=== PATIENT | male | born 1965 | race African-American/Black ===

== ENCOUNTER 2021-04-22 09:05 | Emergency (ER) | payer OTHER, SELFPAY ==
[2021-04-22 09:22] VITALS: BP 151/91; PULSE 90; RESP 18; TEMP 36.6; O2SAT 99; BMI 33.2
[2021-04-22 10:01] LABS: Appearance Urine CLEAR; Color Urine YELLOW; Glucose Urine UA >=1000 MG/DL (NEG); Leukocyte Esterase Urine NEG (NEG); Nitrite Urine NEG (NEG); PH 5.5 (5.0-8.0); Urine Blood NEG (NEG); Urine Ketones NEG (NEG); Urine Protein NEG (NEG-TRACE)
[2021-04-22 10:11] LABS: Mucus Urine TRACE /LPF; RBC Urine 0 /HPF (0); WBC Urine 0 /HPF (0-4)
--- NOTE | 2021-04-22 10:38 | ED_ITS ---
HPI - Male Genitourinary General Chief complaint: Urogenital-Male Stated complaint: genital burning Time Seen by Provider: 04/22/21 09:48 Source: patient Mode of arrival: ambulatory History of Present Illness HPI Narrative: 55-year-old male with past medical history of diabetes, hypertension, presenting to the ED complaining of dysuria since yesterday. Is sexually active with 1 female partner. Denies abdominal pain, testicular pain, penile pain/lesions, discharge, nausea/vomiting, flank pain, hematuria MD Complaint: dysuria Related Data Previous Rx's Medication Instructions Recorded doxycycline hyclate 100 mg tablet 100 mg PO BID 7 Days #14 tab 04/22/21 Allergies Allergy/AdvReac Type Severity Reaction Status Date / Time No Known Allergies Allergy Unverified 05/02/20 19:10 Review of Systems Review of Systems: Constitutional: No Fever, No Chills ENT/Mouth: No Ear Pain, No Nasal Congestion Cardiovascular: No Chest Pain, No SOB Respiratory: No Cough, No Sputum, No Wheezing Gastrointestinal: No Nausea, No Vomiting, No Diarrhea, No Constipation, No Abdominal pain Genitourinary:+ Dysuria, No Urinary Frequency, No Hematuria, No Urinary Incontinence, No Urgency, No Flank Pain, no penile pain, no discharge, no test icular pain Musculoskeletal: No joint pain, No Myalgias Skin: No Skin Lesions, No rash Neuro: No Weakness Yes all other systems are reviewed and are negative [facility] Past Medical History Attestation statement: The following information was validated with the patient. Medical History (Updated 04/22/21 @ 11:12 by MARCELO Henning) Diabetes HTN (hypertension) Social History Social History Advance Directives: No Advance Directives Information Provided: No Physical Exam Vital Signs: Vital Signs: Last Vital Signs Temp 98 F 04/22/21 09:22 Pulse 90 04/22/21 09:22 Resp 18 04/22/21 09:22 BP 151/91 H 04/22/21 09:22 Pulse Ox 99 04/22/21 09:22 Body Mass Index 33.2 Const: General: cooperative, healthy appearing and no acute distress Orientation/consciousness: patient oriented x3 Limitations: no limitations HENMT: Head: Yes normal to inspection Ears: hearing grossly normal bilaterally General nose exam: Normal external nose present Face and sinus: Yes normal facial exam Eyes: General: appearance normal, both eyes and all related structures EOM: EOMs intact bilaterally Neck: Neck: Yes normal visual inspection Resp: Effort & Inspection: normal respiratory effort and no respiratory distress Cardio: Rate: regular rate GI: Inspection: Yes normal to inspection Palpation (GI): Soft to palpation, nontender, no guarding and not rigid : General: Yes no CVA tenderness Male General Exam: Yes normal external exam Penis: normal penis and uncircumcised Meatus: meatus normal and no meatla discharge Testes: Testes normal and no epidiymal tenderness Back/Spine/Pelvis: Back: no CVA tenderness Skin: Rashes: no rashes Wounds: no wounds Neuro: General: patient oriented x3 Gait exam (Neuro): Normal gait present Extrem: General: Yes normal to inspection Course Course Course Narrative: -UA not infected. Patient given doxycycline and ceftriaxone in the ED for STI treatment. Discussed further STI testing at have history and repeat UA with PCP if symptoms continue, patient verbalized understanding feel safe for discharge home with MDM - Male Genitourinary MDM Narrative Medical decision making narrative: 55-year-old male with past medical history of diabetes, hypertension, presenting to the ED complaining of dysuria since yesterday. On exam VSS, NAD, abdomen soft/nontender, no CVAT, exam WNL, no penile lesions, no testicular tenderness, no discharge Rule out UTI versus STI. Patient is agreeable for impaired STI testing today. Low concern for testicular torsion, renal stone or pyelo Plan: STI testing, UA, will give IM Ceftriaxone and p.o. Doxy Medical Records Attestation: I reviewed the patient's medical records. Lab Data Attestation: I reviewed the patient's lab results. Labs: Lab Results 04/22/21 Range/Units 09:51 Urine Color YELLOW Urine Appearance CLEAR Urine pH 5.5 (5.0-8.0) Ur Specific [place] 1.020 (1.005-1.025) Urine Protein NEG (NEG-TRACE) MG/DL Urine Glucose (UA) >=1000 H (NEG) MG/DL Urine Ketones NEG (NEG) MG/DL Urine Blood NEG (NEG) Urine Nitrite NEG (NEG) Ur Leukocyte Esterase NEG (NEG) Urine RBC 0 (0) /HPF Urine WBC 0 (0-4) /HPF Ur Squamous Epith Cells NONE /LPF Urine Bacteria NONE /LPF Urine Mucus TRACE /LPF Discharge Plan Discharge Clinical Impression: Dysuria, STI (sexually transmitted infection) Patient Disposition: Home, Self-Care Instructions: Dysuria (ED) Additional Instructions: Your urine was not infected today You were tested for gonorrhea and chlamydia, the results should be back in a couple days, we will call you only for positive results You were treated empirically Doxycycline is an antibiotic, continue to take as prescribed Stay out of the sun while taking doxycycline, it makes you prone to sunburn Please refrain from any sexual contact until you know the results of your studies Inform her partners of her results if your positive so they can be tested and treated as well If her symptoms persist or worsen, you develop abdominal pain, back pain, fever, chills, penile lesions or testicular pain please return to the ED, follow-up with her doctor Follow-up with [facility] for further STI testing Prescriptions: New doxycycline hyclate 100 mg tablet 100 mg PO BID 7 Days Qty: 14 RF: 0 Referrals: Domingo Curran MD [Primary Care Provider] - 5 days
[2021-04-22] MEDS: cefTRIAXone sodium 500 MG, Lidocaine HCl 1 % MPF 1 ML IM (11:02)
[2021-04-22 12:45] LABS: CT PCR NOT DETECTED (Not Detect.); NG PCR NOT DETECTED (Not Detect.)
== END 2021-04-22 11:24 | disposition home or self-care (01) ==
PROVIDERS: Emergency Provider Emergency Medicine; PCP Internal Medicine Endocrinology, Diabetes & Metabolism
DX: R30.0 Dysuria (principal); Z11.3 Encounter for screening for infections with a predominantly sexual mode of transmission; E11.9 Type 2 diabetes mellitus without complications; I10 Essential (primary) hypertension
CPT/HCPCS: 81001; 87491; 87591; 96372; 99284; J0696

== ENCOUNTER 2024-03-14 07:46 | Emergency (ER) | payer OTHER, SELFPAY ==
[2024-03-14] VITALS (12 sets, daily range): BP systolic 128–162; BP diastolic 92–115; PULSE 87–111; RESP 14–26; TEMP 36.5–36.7; O2SAT 96–100; BMI 32.1; BMI 33.5
--- NOTE | ~2024-03-14 | XR_ITS ---
EXAMINATION: XR CHEST 2 VIEW CLINICAL INFORMATION: Chest pain COMPARISON: None TECHNIQUE: PA and lateral views of the chest obtained. FINDINGS: There are bilateral patchy perihilar opacities with prominence of the central vasculature and upper lung zone vessels. No pleural effusions are detected. The cardiomediastinal silhouette is nonenlarged.. There are no pleural effusions. The cardiomediastinal silhouette is normal. XR/XR chest 2V IMPRESSION: Bilateral patchy perihilar opacities and prominence of the central vasculature and upper lung zone vessels. Findings are nonspecific and could be related to congestive failure, although bilateral pneumonia cannot be excluded. Follow-up is recommended to confirm clearing
--- NOTE | 2024-03-14 07:49 | ECG_ITS ---
Test Reason : cp Blood Pressure : / mmHG Vent. Rate : 104 BPM Atrial Rate : 104 BPM P-R Int : 188 ms QRS Dur : 070 ms QT Int : 328 ms P-R-T Axes : 057 -37 -16 degrees QTc Int : 431 ms Sinus tachycardia Left axis deviation Hyperacute T waves anterior and lateral leads with inferior ST depressions-T wave inversion. -suspect ischemia Abnormal ECG No previous ECGs available Referred By: Generic ED Physician Electronically Signed By:Buster Alejandra
--- NOTE | 2024-03-14 08:01 | PC.NURSE ---
Pt. in ED 18. POC = 174
--- NOTE | 2024-03-14 08:02 | PC.NURSE ---
Pt. on cardiac monitoring at this time.
[2024-03-14 08:04] LABS: Glucose, Whole Blood 174 mg/dL (60-115)
--- NOTE | 2024-03-14 08:09 | PC.NURSE ---
20G inserted to RAC.
--- NOTE | 2024-03-14 08:13 | PC.NURSE ---
Labs sent as ordered.
[2024-03-14 08:18] LABS: MANUAL DIFF FLAG NO
[2024-03-14 08:20] LABS: Basophils Absolute Auto 0.1 X10*3/uL (0.0-0.2); Basophils Percent Auto 0.7 % (0-2); Eosinophils Absolute Auto 0.3 X10*3/uL (0.0-0.4); Hematocrit 40.9 % (42.0-52.0); Hemoglobin 13.9 g/dl (14.0-18.0); Imm Gran Abs Auto 0.03 X10*3/uL (0.00-0.03); Imm Gran Pct Auto 0.4 % (0.0-0.4); Lymphocytes Absolute Auto 3.9 X10*3/uL (1.2-4.9); Lymphocytes Percent Auto 56.6 % (20-40); Mean Corpuscular Hemoglobin 27.7 pg (27.0-33.0); Mean Corpuscular Volume 81.5 fL (80.0-98.0); Mean Platelet Volume 9.2 fL (9.4-12.4); Monocytes Absolute Auto 0.5 X10*3/uL (0.1-1.2); Monocytes Percent Auto 7.6 % (2-11); Neutrophils Absolute Auto 2.1 x10*3/uL (2.0-8.3); Neutrophils Percent Auto 30.7 % (45-73); Platelet Count 307 X10*3/uL (160-400); Red Blood Count 5.02 X10*6/uL (4.60-5.80); White Blood Count 6.8 X10*3/uL (4.8-10.8)
[2024-03-14 08:31] LABS: Anion Gap 13 (12-20); Blood Urea Nitrogen 7 mg/dL (9-16); Calcium 9.5 mg/dL (8.4-10.2); Carbon Dioxide 26 mmol/L (22-29); Chloride 103 mmol/L (96-108); Creatinine Clr Calc Pharmacy 104.1; Estimated Glomerular Filt Rate > 60; Glucose Random 188 mg/dL (60-115); Potassium 4.2 mmol/L (3.3-5.1); Sodium 138 mmol/L (135-145)
[2024-03-14] MEDS: Nitroglycerin 0.4 MG TAB.SUBL SUBLINGUAL ×3 (08:40→09:32)
[2024-03-14] MEDS: Magnesium Hydrox/Alum Hydrox 30 ML ORAL.SUSP PO (08:41)
--- NOTE | 2024-03-14 08:44 | PC.NURSE ---
Nitroglycerin and Maalox administered per OCT, D-Dimer drawn as ordered.
[2024-03-14 08:47] LABS: Troponin-I High Sensitivity 240.8 ng/L (<3.5-35.0)
--- NOTE | 2024-03-14 09:04 | PC.NURSE ---
Pt. medicated per MAR with second dose of 0.4mg Nitro. Is still c/o 05/25 chest pain at this time.
[2024-03-14 09:23] LABS: D Dimer High Sensitivity < 150 NG/ML
--- NOTE | 2024-03-14 09:34 | PC.NURSE ---
Pt. medicated per MAR with 3/3 dose of Nitroglycerin 0.4mg. Still with 10/10 CP. Provider aware.
--- NOTE | 2024-03-14 10:06 | PC.NURSE ---
Repeat Troponin drawn as ordered.
[2024-03-14] MEDS: Morphine Sulfate 2 MG/ML CARTRIDGE IVPUSH ×2 (10:22→10:59)
[2024-03-14 10:45] LABS: Troponin-I High Sensitivity 405.8 ng/L (<3.5-35.0)
--- NOTE | 2024-03-14 10:48 | ED_ITS ---
HPI - Chest Pain General Chief Complaint: Chest Pain Stated Complaint: Chest pain Time Seen by Provider: 03/14/24 08:17 Source: patient Limitations: no limitations History of Present Illness ED Provider: Xiomara Lewis PA-C HPI narrative: 58-year-old male with history of hypertension, hyperlipidemia diabetes presents with chest pain x3 days. Pain is over central chest, described as pleuritic, is nonradiating, and has increased in severity since the onset. Patient states he has had a mild dry, cough over the past few days, denies fever or history of asthma/COPD.Denies shortness of breath, diaphoresis, nausea or vomiting. Denies unilateral calf pain or swelling, hemoptysis, recent travel or surgery. Related Data Previous Rx's ?Medication ?Instructions ?Recorded doxycycline hyclate 100 mg tablet 100 mg PO BID 7 days #14 tabs 04/22/21 Allergies Allergy/AdvReac Type Severity Reaction Status Date / Time No Known Allergies Allergy Verified 03/14/24 07:58 Review of Systems 2 Review of Systems: Yes all other systems are reviewed and are negative Constitutional: Constitutional: Denies fatigue and Denies fever(s) Cardiovascular: Cardiovascular: Reports chest pain at rest and Denies dyspnea Respiratory: Respiratory: Reports pain on inspiration and Denies dyspnea Gastrointestinal: Gastrointestinal: Denies nausea Endocrine: Endocrine: Denies fatigue PMFSH Past Medical History Attestation statement: The following information was validated with the patient. Medical History (Updated 03/14/24 @ 11:39 by MARCELO Calhoun) HTN (hypertension) Diabetes Social History Social History Smoked in Last 30 Days: No Use of substances other than those prescribed or required for medical reasons: No Advance Directives: No Physical Exam 2 Vital Signs: Vital Signs: Last Vital Signs Temp 98.0 F 03/14/24 08:03 Pulse 87 03/14/24 11:11 Resp 14 03/14/24 11:11 BP 138/98 H 03/14/24 11:11 Pulse Ox 96 03/14/24 11:11 O2 Del Method Room Air 03/14/24 11:11 BMI result Body Mass Index 33.5 Const: Other: Alert, appears restless Orientation/consciousness: patient oriented x3 Resp: Other: Nonlabored respiration, faint expiratory wheeze wheezes/rhonchi noted posterior gunter Cardio: Other: Normal peripheral perfusion, no peripheral edema Skin: Other: Warm dry no rash Neuro: General: patient oriented x3, no focal motor deficits and CN's II-XI intact bilaterally Psych: Other: Cooperative Course Course Course Narrative: 58-year-old male with history of hypertension, hyperlipidemia diabetes presents with chest pain x3 days. Pain is over central chest, described as pleuritic, is nonradiating, and has increased in severity since the onset. Patient states he has had a mild dry, cough over the past few days, denies fever or history of asthma/COPD.Denies shortness of breath, diaphoresis, nausea or vomiting. Denies unilateral calf pain or swelling, hemoptysis, recent travel or surgery. Problem: Age, diabetes, hypertension, hyperlipidemia History: Per patient I have considered the following differential diagnoses: Pneumonia, viral syndrome, PE, ACS, GERD Plan: Concerned for ACS, the patient has numerous risk factors for coronary artery disease, Screening labs including cardiac enzymes, EKG and chest x-ray in process. We will be giving nitroglycerin. Given central discomfort, I am considering GERD, we will try Maalox. There is a pleuritic nature to the patient's pain, he is mildly tachycardic, although no obvious signs symptoms for DVT, and no risk factors for PE, I will obtain a D-dimer. He has had cough cold symptoms, perhaps this is viral syndrome versus pneumonia given adventitious lung sounds on exam, we will wait for chest x-ray. To note he has been afebrile. I have independently reviewed the following tests: EKG 1. Sinus tachycardia, rate of 104, ST depression lead 2 with T-wave inversions in 3 and AVF no additional ischemic changes, we do not have another EKG to Compare to EKG 2. Normal sinus rhythm, rate 89, ST-elevation anterolateral leads Labs: No leukocytosis, not anemic, no electrolyte abnormality, 1st troponin 240, 2nd 405 Chest x-ray: MR#: [id number] : 1965 Acct:[id number] Age/Sex: 58 / M ADM Date: 03/14/24 Loc: .ED Attending Dr: Ordering Physician: Xiomara Lewis Date of Service: 03/14/24 Procedure(s): XR chest 2V Accession Number(s): [id number] cc: Xiomara Lewis; Physician,Unknown ~ EXAMINATION: XR CHEST 2 VIEW CLINICAL INFORMATION: Chest pain COMPARISON: None TECHNIQUE: PA and lateral views of the chest obtained. FINDINGS: There are bilateral patchy perihilar opacities with prominence of the central vasculature and upper lung zone vessels. No pleural effusions are detected. The cardiomediastinal silhouette is nonenlarged.. There are no pleural effusions. The cardiomediastinal silhouette is normal. XR/XR chest 2V IMPRESSION: Bilateral patchy perihilar opacities and prominence of the central vasculature and upper lung zone vessels. Findings are nonspecific and could be related to congestive failure, although bilateral pneumonia cannot be excluded. Follow-up is recommended to confirm clearing Patient does not have a leukocytosis, he does not have a productive cough, I am inclined to think this maybe pulmonary edema, we will add a BNP Patient having a STEMI, ordering heparin and aspirin, will be reaching out to Cardiology Consultations Consultation #1: Patient cardiology now that I have the 2nd troponin, Dr. Alejandra sent the EKGs.... He recommends transfer to [facility] to activate the label paster, to give 180mg of Brilinta and a bolus of heparin 4000 units Time: 10:51 Consultation #2: Speaking with interventional cardiology at [facility], Dr. Mathur, something EKG, they are preparing the label paster they are waiting for the patient's arrival Time: 11:37 Medications Administered Generic Name Dose Route Start Last Admin Trade Name Freq PRN Reason Stop Dose Admin Morphine Sulfate 2 mg 03/14/24 10:06 03/14/24 10:59 Morphine Sulfate 2 Mg/Ml Cartridge IVPUSH 2 mg Q5M PRN Administration Chest Pain Protocol Nitroglycerin 0.4 mg 03/14/24 08:24 03/14/24 09:32 Nitroglycerin 0.4 Mg Tab.Subl SUBLINGUAL 0.4 mg [id number] PRN Administration Chest Pain Discontinued Medications Generic Name Dose Route Start Last Admin Trade Name Freq PRN Reason Stop Dose Admin Al Hydroxide/Mg Hydroxide 30 ml 03/14/24 08:24 03/14/24 08:41 Magnesium Hydrox/Alum Hydrox 30 Ml Oral.Susp PO 03/14/24 08:25 30 ml ONCE ONE Administration Aspirin 324 mg 03/14/24 10:53 03/14/24 10:58 Aspirin 81 Mg Tab.Chew PO 03/14/24 10:54 324 mg ONCE ONE Administration Ticagrelor 180 mg 03/14/24 11:10 03/14/24 11:23 Ticagrelor 90 Mg Tablet PO 03/14/24 11:11 180 mg ONCE ONE Administration Medical Decision Making Lab Data 03/14/24 08:13 03/14/24 08:13 Labs: Lab Results 03/14/24 03/14/24 03/14/24 Range/Units 08:01 08:13 08:41 WBC 6.8 (4.8-10.8) X10*3/uL RBC 5.02 (4.60-5.80) X10*6/uL Hgb 13.9 L (14.0-18.0) g/dl Hct 40.9 L (42.0-52.0) % MCV 81.5 (80.0-98.0) fL MCH 27.7 (27.0-33.0) pg MCHC 34.0 (31.0-36.0) g/dl RDW 15.0 (11.0-16.0) % Plt Count 307 (160-400) X10*3/uL MPV 9.2 L (9.4-12.4) fL Immature Gran % (Auto) 0.4 (0.0-0.4) % Neut % (Auto) 30.7 L (45-73) % Lymph % (Auto) 56.6 H (20-40) % [place] % (Auto) 7.6 (2-11) % Eos % (Auto) 4.0 (0-4) % Baso % (Auto) 0.7 (0-2) % Lymph # (Auto) 3.9 (1.2-4.9) X10*3/uL [place] # (Auto) 0.5 (0.1-1.2) X10*3/uL Eos # (Auto) 0.3 (0.0-0.4) X10*3/uL Baso # (Auto) 0.1 (0.0-0.2) X10*3/uL Abs Immat Gran (auto) 0.03 (0.00-0.03) X10*3/uL Absolute Neuts (auto) 2.1 (2.0-8.3) x10*3/uL Absolute Nucleated RBC 0.000 (0.0-0.012) X10*3/uL Nucleated RBC % (auto) 0.0 (0.0-0.2) /100WBC PT 11.7 (11.1-13.3) SEC INR 1.0 (0.9-1.1) APTT 27.9 (26.0-36.8) SEC aPTT Heparin Protocol D-Dimer High Sensitivty < 150 NG/ML Sodium 138 (135-145) mmol/L Potassium 4.2 (3.3-5.1) mmol/L Chloride 103 (96-108) mmol/L Carbon Dioxide 26 (22-29) mmol/L Anion Gap 13 (12-20) BUN 7 L (9-16) mg/dL Creatinine 0.95 (0.5-1.4) mg/dL Estim Creat Clear Calc 104.1 Estimated GFR > 60 POC Glucose 174 H (60-115) mg/dL Random Glucose 188 H (60-115) mg/dL Calcium 9.5 (8.4-10.2) mg/dL Troponin I High Sens 240.8 H* (<3.5-35.0) ng/L B-Natriuretic Peptide 33 (<100) pg/mL 03/14/24 03/14/24 Range/Units 10:02 11:23 WBC (4.8-10.8) X10*3/uL RBC (4.60-5.80) X10*6/uL Hgb (14.0-18.0) g/dl Hct (42.0-52.0) % MCV (80.0-98.0) fL MCH (27.0-33.0) pg MCHC (31.0-36.0) g/dl RDW (11.0-16.0) % Plt Count (160-400) X10*3/uL MPV (9.4-12.4) fL Immature Gran % (Auto) (0.0-0.4) % Neut % (Auto) (45-73) % Lymph % (Auto) (20-40) % [place] % (Auto) (2-11) % Eos % (Auto) (0-4) % Baso % (Auto) (0-2) % Lymph # (Auto) (1.2-4.9) X10*3/uL [place] # (Auto) (0.1-1.2) X10*3/uL Eos # (Auto) (0.0-0.4) X10*3/uL Baso # (Auto) (0.0-0.2) X10*3/uL Abs Immat Gran (auto) (0.00-0.03) X10*3/uL Absolute Neuts (auto) (2.0-8.3) x10*3/uL Absolute Nucleated RBC (0.0-0.012) X10*3/uL Nucleated RBC % (auto) (0.0-0.2) /100WBC PT Cancelled (11.1-13.3) SEC INR Cancelled (0.9-1.1) APTT (26.0-36.8) SEC aPTT Heparin Protocol Cancelled D-Dimer High Sensitivty NG/ML Sodium (135-145) mmol/L Potassium (3.3-5.1) mmol/L Chloride (96-108) mmol/L Carbon Dioxide (22-29) mmol/L Anion Gap (12-20) BUN (9-16) mg/dL Creatinine (0.5-1.4) mg/dL Estim Creat Clear Calc Estimated GFR POC Glucose (60-115) mg/dL Random Glucose (60-115) mg/dL Calcium (8.4-10.2) mg/dL Troponin I High Sens 405.8 H* D (<3.5-35.0) ng/L B-Natriuretic Peptide (<100) pg/mL Discharge Plan Discharge Clinical Impression: ST elevation (STEMI) myocardial infarction Patient Disposition: Xfer Other Transfer Details: To [facility] label paster direct transfer Prescriptions: No Action doxycycline hyclate 100 mg tablet 100 mg PO BID 7 Days Qty: 14 0RF Print Language: American
--- NOTE | 2024-03-14 10:52 | ECG_ITS ---
Test Reason : PAIN, NOW RESOLVED Blood Pressure : / mmHG Vent. Rate : 089 BPM Atrial Rate : 089 BPM P-R Int : 186 ms QRS Dur : 072 ms QT Int : 354 ms P-R-T Axes : 046 -31 002 degrees QTc Int : 430 ms Normal sinus rhythm Left axis deviation ST elevation consider anterolateral injury or acute infarct ACUTE TX / STEMI Abnormal ECG When compared with ECG of 14-MAR-2024 07:46, ST now depressed in Inferior leads ST elevation has replaced ST depression in Lateral leads Referred By: Xiomara Lewis Electronically Signed By:Buster Alejandra
[2024-03-14 10:53] LABS: B Type Natriuretic Peptide 33 pg/mL (<100)
[2024-03-14 10:57] LABS: Prothrombin Time 11.7 SEC (11.1-13.3)
[2024-03-14] MEDS: Aspirin 81 MG TAB.CHEW 324 MG PO (10:58)
[2024-03-14 10:59] LABS: Partial Thromboplastin Time 27.9 SEC (26.0-36.8)
--- NOTE | 2024-03-14 11:12 | PC.NURSE ---
Second IV access obtained - 20G to R forearm. +blood return, patent
[2024-03-14] MEDS: Ticagrelor 90 MG TABLET 180 MG PO (11:23)
[2024-03-14] MEDS: Heparin Sodium,Porcine 5,000 UNIT/ML VIAL 4400 UNIT IVPUSH (11:35)
--- NOTE | 2024-03-14 11:36 | PC.NURSE ---
0.88mLs/4,400U IVP Heparin bolus administered per verbal orders of MARCELO Cervantes
--- NOTE | 2024-03-14 11:45 | PC.NURSE ---
Nurse to nurse called to Yesy Blanco RN at [facility] Cath. Lab.
--- NOTE | 2024-03-14 11:45 | PC.NURSE ---
EMS: Arrival - 11:20 On stretcher - 11:37 Leaving - 11:40
== END 2024-03-14 11:52 | disposition short-term general hospital (02) ==
PROVIDERS: Physician Assistant Medical; Emergency Provider Emergency Medicine
DX: I21.9 Acute myocardial infarction, unspecified (principal); R07.89 Other chest pain; R00.0 Tachycardia, unspecified; Z79.899 Other long term (current) drug therapy
CPT/HCPCS: 36415; 71046; 80048; 82947; 83880; 84484; 85025; 85379; 85610; 85730; 93005; 96374; 99285; J1644; J2270

== ENCOUNTER → 2024-03-14 07:49 | Outpatient (BNV) | payer OTHER, SELFPAY | PROVIDERS: Emergency Provider Emergency Medicine; Visit Provider Internal Medicine Cardiovascular Disease | DX: R94.31 Abnormal electrocardiogram [ECG] [EKG] (principal) | CPT/HCPCS: 93010 ==